=== PATIENT | male | born 1945 ===

== ENCOUNTER 2016-10-21 07:03 | Emergency (ER) | payer OTHER, MEDICAID ==
[2016-10-21 07:28] VITALS: BP 120/72; PULSE 71; RESP 16; TEMP 98.1; O2SAT 98
[2016-10-21] MEDS ORDERED: Lidocaine 5% Patch TD STA (07:28)
--- NOTE | 2016-10-21 07:50 | ED PDOC ---
HPI: Back Time Seen by Provider: 10/21/16 07:15 Chief Complaint (Nursing): Back Pain Chief Complaint (Provider): Back Pain History Per: Patient History/Exam Limitations: no limitations Onset/Duration Of Symptoms: Days (x1 week) Current Symptoms Are (Timing): Still Present Additional Complaint(s): Pt is a 71 y/o male who presents to the emergency department with diffuse back pain that radiates to the legs bilaterally and left knee x1 week. Patient state he performed heavy lifting about 2 weeks ago. Reports pain is a 10 from a 1-10 scale and worsens with movement. Patient has tried ibuprofen for his pain. Pt was diagnosed with 2 herniated discs and lumbar problems 4 yrs ago, and had epidural injections at that time to help the symptoms. PMD: Dr. Jonas Cristina MD Past Medical History Reviewed: Historical Data, Nursing Documentation, Vital Signs Vital Signs: Last Vital Signs Temp 98.1 F 10/21/16 07:15 Pulse 71 10/21/16 07:15 Resp 16 10/21/16 07:15 BP 120/72 10/21/16 07:15 Pulse Ox 98 10/21/16 07:15 - Medical History PMH: Diabetes, HTN, Hypercholesterolemia Other PMH: skin cancer, herniated discs - Surgical History Other surgeries: Right Lung Polyp surgery (2008) - Family History Family History: States: Other (Stomach cancer) - Social History Current smoker - smoking cessation education provided: No Alcohol: None Drugs: Denies - Home Medications Home Medications: Ambulatory Orders Medication Instructions Recorded Alendronate [Fosamax] 70 mg PO QWK 10/21/16 Empagliflozin [Jardiance] 10 mg PO DAILY 10/21/16 Escitalopram [Lexapro] 10 mg PO DAILY 10/21/16 Fenofibrate [Tricor] 67 mg PO DAILY 10/21/16 Ibuprofen [Motrin Tab] 400 mg PO BID PRN 10/21/16 Meclizine [Meclizine*] 12.5 mg PO DAILY 10/21/16 MetFORMIN [glucoPHAGE] 1,000 mg PO BID 10/21/16 Naproxen [Naprosyn] 500 mg PO Q12H #20 tab 10/21/16 Pravastatin Sodium [Pravastatin 40 mg PO DAILY 10/21/16 Sodium] Ranitidine HCl [Zantac] 300 mg PO DAILY 10/21/16 Tiotropium [place] [Spiriva 2.5 mcg INH TID 10/21/16 Respimat] Valsartan [Diovan] 40 mg PO DAILY 10/21/16 traMADol [Ultram] 50 mg PO Q8 #10 tab 10/21/16 - Allergies Allergies/Adverse Reactions: Allergies Allergy/AdvReac Type Severity Reaction Status Date / Time No Known Allergies Allergy Verified 10/09/15 11:13 Review of Systems ROS Statement: Except As Marked, All Systems Reviewed And Found Negative Musculoskeletal: Positive for: Back Pain (Diffusely), Leg Pain (B/L), Other ( Left knee) Physical Exam - Reviewed Nursing Documentation Reviewed: Yes Vital Signs Reviewed: Yes - Physical Exam Appears: Positive for: Non-toxic, No Acute Distress Head Exam: Positive for: ATRAUMATIC, NORMOCEPHALIC Skin: Positive for: Normal Color, Warm, Dry Eye Exam: Positive for: Normal appearance ENT: Positive for: Normal ENT Inspection Neck: Positive for: Normal, Supple Cardiovascular/Chest: Positive for: Regular Rate, Rhythm. Negative for: Murmur Respiratory: Positive for: Normal Breath Sounds. Negative for: Accessory Muscle Use, Respiratory Distress Gastrointestinal/Abdominal: Positive for: Normal Exam, Bowel Sounds, Soft. Negative for: Tenderness Back: Positive for: Other (Tenderness of the paralumbar region; pain when flexes at lower back). Negative for: Normal Inspection Extremity: Positive for: Normal ROM Neurologic/Psych: Positive for: Alert, Oriented. Negative for: Motor/Sensory Deficits - ECG O2 Sat by Pulse Oximetry: 98 (RA) Pulse Ox Interpretation: Normal Medical Decision Making Medical Decision Making: Time: 7:15 Initial impression: Back pain, herniated disc exacerbation Initial plan: --Lidocaine 5% TD --Motrin 600 mg PO --Tylenol 975 mg PO --Valium 5 mg PO --LS Spine AP/LAT (RAD) Stat --Revaluation Scribe Attestation: Documented by Aspen Whitley, acting as a scribe for Robbie Mcgee MD. Provider Scribe Attestation: All medical record entries made by the Scribe were at my direction and personally dictated by me. I have reviewed the chart and agree that the record accurately reflects my personal performance of the history, physical exam, medical decision making, and the department course for this patient. I have also personally directed, reviewed, and agree with the discharge instructions and disposition. Disposition - Clinical Impression Clinical Impression: Back pain - Patient ED Disposition Is Patient to be Admitted: No - Disposition Referrals: [facility] [Outside] Disposition: Routine/Home Disposition Time: 10:00 Condition: IMPROVED Prescriptions: Naproxen [Naprosyn] 500 mg PO Q12H #20 tab traMADol [Ultram] 50 mg PO Q8 #10 tab Instructions: Back Pain (ED) Physician Patient Turnover - . Patient Signed Over To: Samuel Maier Handoff Comments: Pt endorsed to Dr. Maier at 10:00 AM. Handoff is to reassess the patient. If his pain is improved, then d/c patient home.
[2016-10-21] MEDS ORDERED: Acetaminophen-Codeine 300/30 mg Tab PO STA (09:55)
--- NOTE | 2016-10-21 10:05 | ED PDOC ---
- ECG O2 Sat by Pulse Oximetry: 98 (RA) Pulse Ox Interpretation: Normal Medical Decision Making Medical Decision Making: Time: 9:55 --Tylenol/Codeine 300 mg/30 mg. --Patient is pending x-ray, reassessment, and disposition. Disposition Counseled Patient/Family Regarding: Studies Performed, Diagnosis, Need For Followup, Rx Given - Clinical Impression Clinical Impression: Back pain - POA Present On Arrival: None - Disposition Referrals: [facility] [Outside] Disposition: Routine/Home Disposition Time: 10:11 Condition: FAIR Prescriptions: Naproxen [Naprosyn] 500 mg PO Q12H #20 tab traMADol [Ultram] 50 mg PO Q8 #10 tab Instructions: Back Pain (ED)
--- NOTE | 2016-10-21 13:05 | RAD ---
PROCEDURE: Radiographs of the Lumbar Spine. HISTORY: Low back pain COMPARISON: No prior. FINDINGS: BONES: There is straightening of the lumbar spine with loss of normal lumbar lordosis. Vertebral alignment is normal. Vertebral height is maintained. Bone mineralization is normal. There is no acute fracture. DISC SPACES: There is multilevel degenerative disc disease with reduced disc heights, anterior osteophytes and multilevel facet arthropathy, worse at L5-S1. OTHER FINDINGS: There are no pathologic soft tissue calcifications. Both sacroiliac joints are normal. IMPRESSION: No acute fracture. Mild multilevel degenerative disc disease, worse at L5-S1.
== END 2016-10-21 10:46 | disposition home or self-care (01) ==
LOC: H.ER 07:03
DX: M54.9 Dorsalgia, unspecified (principal); E11.9 Type 2 diabetes mellitus without complications; E78.00 Pure hypercholesterolemia, unspecified; I10 Essential (primary) hypertension; Z79.84 Long term (current) use of oral hypoglycemic drugs

== ENCOUNTER 2018-04-20 19:42 | Emergency (ER) | payer MEDICARE ==
[2018-04-20 19:42] VITALS: BMI 25.6
[2018-04-20 21:35] LABS: BASO % 0.6 % (0.0-2.0); EOS # 0.2 K/uL (0.0-0.7); EOS % 3.6 % (0.0-4.0); HEMOGLOBIN 14.1 g/dL (12.0-18.0); LYMPH # 2.8 K/uL (1.0-4.3); LYMPH % 51.2 % (20.0-40.0); MEAN CORPUSCULAR HEMOGLOBIN 28.9 pg (27.0-31.0); MEAN CORPUSCULAR HGB CONC 33.2 g/dL (33.0-37.0); MEAN PLATELET VOLUME 7.9 fl (7.2-11.7); MONO # 0.4 K/uL (0.0-0.8); MONO % 7.6 % (0.0-10.0); RBC 4.88 Mil/uL (4.40-5.90); RED CELL DISTRIBUTION WIDTH 13.9 % (11.5-14.5); WHITE BLOOD COUNT 5.4 K/uL (4.8-10.8)
[2018-04-20 21:42] LABS: BLOOD UREA NITROGEN 21 mg/dl (9-20); CALCIUM 9.7 mg/dL (8.4-10.2); GFR NON-AFRICAN AMERICAN > 60
--- NOTE | 2018-04-20 21:53 | ED PDOC ---
HPI: Headache Chief Complaint (Provider): Headache History Per: Patient, Administrative Support Coordinator ([id number]) History/Exam Limitations: no limitations Onset/Duration Of Symptoms: Days (x5) Current Symptoms Are (Timing): Still Present Pain Scale Rating Of: 9 Additional Complaint(s): 73 year old male presents to the ED for evaluation of a posterior headache that started on monday associated with neck and bilateral shoulder pain which was described as stiffness. Patient states headache is 9 out of 10 and described as strong pain and unrelieved by ibuprofen. Last dose of ibuprofen was at 14:00 today. He states he applied hot compresses to neck with no relief and denies associated symptoms. Denies dizziness, nausea, vomiting, abdominal pain, chest pain, shortness of breath, weakness, numbness, or changes in vision. PMD: Dr. Cristina <Radha Sapp - Last Filed: 04/20/18 23:16> <Cele Medellin - Last Filed: 04/21/18 22:32> Time Seen by Provider: 04/20/18 20:36 Chief Complaint (Nursing): Headache Supervising Attending Note - Attestation: I have personally seen and examined this patient.: No I have reviewed all pertinent clinical information: Yes <Cele Medellin - Last Filed: 04/21/18 22:32> Past Medical History Reviewed: Historical Data, Nursing Documentation, Vital Signs Vital Signs: Last Vital Signs Temp 98.4 F 04/20/18 19:56 Pulse 71 04/20/18 19:56 Resp 18 04/20/18 19:56 BP 131/65 04/20/18 19:56 Pulse Ox 97 04/20/18 19:56 - Medical History PMH: Diabetes, HTN, Hypercholesterolemia - Surgical History Other surgeries: Procedure to lungs - Family History Family History: States: Unknown Family Hx - Social History Current smoker - smoking cessation education provided: No Alcohol: None Drugs: Denies - Immunization History Hx Influenza Vaccination: Yes Hx Pneumococcal Vaccination: Yes <Radha Sapp - Last Filed: 04/20/18 23:16> Vital Signs: Last Vital Signs Temp 97.5 F L 04/20/18 23:26 Pulse 66 04/20/18 23:26 Resp 16 04/20/18 23:26 BP 118/64 04/20/18 23:26 Pulse Ox 95 04/20/18 23:26 <Cele Medellin - Last Filed: 04/21/18 22:32> - Home Medications Home Medications: Ambulatory Orders Medication Instructions Recorded Empagliflozin [Jardiance] 10 mg PO DAILY 10/21/16 Pravastatin Sodium 40 mg PO DAILY 10/21/16 RX: Alendronate [Fosamax] 70 mg PO QWK 10/21/16 RX: Escitalopram [Lexapro] 10 mg PO DAILY 10/21/16 RX: Fenofibrate [Tricor] 67 mg PO DAILY 10/21/16 RX: Ibuprofen [Motrin Tab] 400 mg PO BID PRN 10/21/16 RX: Meclizine [Meclizine*] 12.5 mg PO DAILY 10/21/16 RX: MetFORMIN [glucoPHAGE] 1,000 mg PO BID 10/21/16 RX: Ranitidine HCl [Zantac] 300 mg PO DAILY 10/21/16 RX: Valsartan [Diovan] 40 mg PO DAILY 10/21/16 Tiotropium [place] [Spiriva 2.5 mcg INH TID 10/21/16 Respimat] Acetaminophen [Acetaminophen 8 650 mg PO Q8 PRN #21 tablet.er 04/20/18 Hour] Meloxicam [Mobic] 15 mg PO DAILY PRN #10 tab 04/20/18 - Allergies Allergies/Adverse Reactions: Allergies Allergy/AdvReac Type Severity Reaction Status Date / Time No Known Allergies Allergy Verified 04/20/18 19:56 Review of Systems ROS Statement: Except As Marked, All Systems Reviewed And Found Negative Eyes: Negative for: Vision Change Cardiovascular: Negative for: Chest Pain Respiratory: Negative for: Shortness of Breath Gastrointestinal: Negative for: Nausea, Vomiting, Abdominal Pain Musculoskeletal: Positive for: Neck Pain, Shoulder Pain Neurological: Positive for: Headache. Negative for: Weakness, Numbness, Dizziness <Radha Sapp - Last Filed: 04/20/18 23:16> Physical Exam - Reviewed Nursing Documentation Reviewed: Yes Vital Signs Reviewed: Yes - Physical Exam Comments: GENERAL APPEARANCE: Patient is awake, alert, oriented x 3, in no acute distress. Resting comfortably. SKIN: Warm, dry; (-) cyanosis; (-) rash. HEAD: (-) scalp swelling or tenderness, (-) temporal artery tenderness. EYES: (-) conjunctival pallor, (-) scleral icterus. ENMT: (-) sinus tenderness; mucous membranes are moist. NECK: (-) tenderness, (-) stiffness, (-) meningismus, (-) lymphadenopathy. CHEST AND RESPIRATORY: (-) rales, (-) rhonchi, (-) wheezes; breath sounds equal bilaterally. HEART AND CARDIOVASCULAR: (-) irregularity; (-) murmur, (-) gallop. ABDOMEN AND GI: Soft; (-) tenderness. BACK: (+) Tenderness of bilateral paracervical trapezius; EXTREMITIES: Full ROM of bilateral upper extremity (-) deformity. NEURO AND PSYCH: Mental status as above. 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 Strength and DTRs symmetric. Babinski normal bilaterally. <Radha Sapp - Last Filed: 04/20/18 23:16> - Laboratory Results Result Diagrams: 04/20/18 21:28 04/20/18 21:28 - ECG O2 Sat by Pulse Oximetry: 97 (RA) Pulse Ox Interpretation: Normal <Radha Sapp - Last Filed: 04/20/18 23:16> - Laboratory Results Result Diagrams: 04/20/18 21:28 04/20/18 21:28 <Cele Medellin - Last Filed: 04/21/18 22:32> Medical Decision Making Medical Decision Making: Initial Impression: Probably tension headache, muscle spasm on neck and shoulder Initial Plan: 2149 CBC and BMP grossly unremarkable. Pending CT results. [address] without contrast: No acute intracranial abnormality Electronically signed on Apr 20, 2018 10:10:13 PM EDT by Winsome Nelson M.D. ([facility]Arad) Toradol 15mg IVP ordered for additional relief. Accucheck: 86 EKG: NSR @ 66bpm, (-) ST elevation (-) ectopy. QTc 436. 2300 On re-evaluation, patient reports improvement of symptoms. On exam, patient remains AAOx3, in no acute distress. Lungs CTA, cardiac RRR, abdomen soft, nontender, repeat neuro exam shows no focal findings. Vitals stable. Lab/Diagnostic results d/w with the patient in great detail. Diagnosis of tension headache, acute neck and shoulder pain d/w patient. Based on history, exam, and diagnostic results, plan will be for outpatient follow up with PMD. Patient instructed to follow up with PMD / referral provided / the clinic in 1-2 days without fail. Advised to take medication as prescribed. Return to the emergency room at any time for any new or worsening symptoms. Patient states he agrees with and understandings discharge instructions. States that he agrees with the plan and disposition. Verbalized and repeated discharge instructions and plan. I have given the patient opportunity to ask any additional questions. Scribe Attestation: Documented by Delvin Duong acting as a scribe for Radha FISHER. Provider Scribe Attestation: All medical record entries made by the Scribe were at my direction and personally dictated by me. I have reviewed the chart and agree that the record accurately reflects my personal performance of the history, physical exam, medical decision making, and the department course for this patient. I have also personally directed, reviewed, and agree with the discharge instructions and disposition. <Radha Sapp - Last Filed: 04/20/18 23:16> Disposition - Patient ED Disposition Is Patient to be Admitted: No Counseled Patient/Family Regarding: Studies Performed, Diagnosis, Need For Followup, Rx Given - Disposition Disposition: Routine/Home Disposition Time: 23:05 - POA Present On Arrival: None <Radha Sapp - Last Filed: 04/20/18 23:16> <Cele Medellin - Last Filed: 04/21/18 22:32> - Clinical Impression Clinical Impression: Tension headache, Muscle spasms of neck, Muscle spasm of shoulder region - Disposition Referrals: Jonas Cristina MD [Family Provider] - Condition: STABLE Additional Instructions: La atencin mdica de emergencia que recibi hoy se dirigi hacia jayla sntomas agudos. Si le recetaron un medicamento, llnelo en la farmacia y tmelo segn las indicaciones. Los sntomas pueden tardar varios zepeda en resolverse. Regrese al departamento de emergencias si jayla sntomas empeoran, no mejoran o si tiene otros problemas. Comunquese con hermosillo mdico / proveedor / clnica referida en 2 zepeda para alvino evaluacin adicional. El tratamiento en el departamento de emergencias no puede reemplazar la atencin mdica en curso por parte de un mdico de cabecera fuera del departamento de emergencias. Prescriptions: Acetaminophen [Acetaminophen 8 Hour] 650 mg PO Q8 PRN #21 tablet.er PRN Reason: Headache Meloxicam [Mobic] 15 mg PO DAILY PRN #10 tab PRN Reason: Headache Instructions: Tension Headache, Headache, Adult, Muscle Spasms (DC), Muscle and Bone Pain (DC) Forms: [employer] (Albanian) Print Language: [id number] Results - Lab Results Lab Results: 04/20/18 04/20/18 04/20/18 21:45 21:28 21:28 WBC 5.4 RBC 4.88 Hgb 14.1 Hct 42.4 MCV 87.0 MCH 28.9 MCHC 33.2 RDW 13.9 Plt Count 217 MPV 7.9 Neut % (Auto) 37.0 L Lymph % (Auto) 51.2 H [place] % (Auto) 7.6 Eos % (Auto) 3.6 Baso % (Auto) 0.6 Neut # (Auto) 2.0 Lymph # (Auto) 2.8 [place] # (Auto) 0.4 Eos # (Auto) 0.2 Baso # (Auto) 0.0 Sodium 140 Potassium 4.0 Chloride 102 Carbon Dioxide 30 Anion Gap 12 BUN 21 H Creatinine 0.8 Est GFR ( Amer) > 60 Est GFR (Non-Af Amer) > 60 POC Glucose (mg/dL) 86 Random Glucose 91 Calcium 9.7 <Radha Sapp - Last Filed: 04/20/18 23:16> - Lab Results Lab Results: 04/20/18 04/20/18 04/20/18 21:45 21:28 21:28 WBC 5.4 RBC 4.88 Hgb 14.1 Hct 42.4 MCV 87.0 MCH 28.9 MCHC 33.2 RDW 13.9 Plt Count 217 MPV 7.9 Neut % (Auto) 37.0 L Lymph % (Auto) 51.2 H [place] % (Auto) 7.6 Eos % (Auto) 3.6 Baso % (Auto) 0.6 Neut # (Auto) 2.0 Lymph # (Auto) 2.8 [place] # (Auto) 0.4 Eos # (Auto) 0.2 Baso # (Auto) 0.0 Sodium 140 Potassium 4.0 Chloride 102 Carbon Dioxide 30 Anion Gap 12 BUN 21 H Creatinine 0.8 Est GFR ( Amer) > 60 Est GFR (Non-Af Amer) > 60 POC Glucose (mg/dL) 86 Random Glucose 91 Calcium 9.7 <Cele Medellin - Last Filed: 04/21/18 22:32>
[2018-04-20 23:27] VITALS: BP 118/64; PULSE 66; RESP 16; TEMP 97.5; O2SAT 95
--- NOTE | 2018-04-21 10:25 | CARD ---
APPROVED REPORT Date of service: 04/20/2018 EKG Measurement Heart [id number] <Conclusion> Normal sinus rhythm Normal ECG
--- NOTE | 2018-04-21 10:59 | CT ---
Date of service: 04/20/2018 PROCEDURE: CT HEAD WITHOUT CONTRAST. HISTORY: posterior headache COMPARISON: Comparison is made to the previous study dated 07/17/2012 TECHNIQUE: Axial computed tomography images were obtained through the head/brain without intravenous contrast. Radiation dose: Total exam DLP = 808.23 mGy-cm. This CT exam was performed using one or more of the following dose reduction techniques: Automated exposure control, adjustment of the mA and/or kV according to patient size, and/or use of iterative reconstruction technique. FINDINGS: HEMORRHAGE: No intracranial hemorrhage. BRAIN: No mass effect or edema. Focal encephalomalacia at the peripheral right cerebellar hemisphere is again noted may represent old infarct. No atrophy or chronic microvascular ischemic changes. VENTRICLES: Unremarkable. No hydrocephalus. CALVARIUM: Unremarkable. PARANASAL SINUSES: Unremarkable as visualized. No significant inflammatory changes. MASTOID AIR CELLS: Unremarkable as visualized. No inflammatory changes. OTHER FINDINGS: None. IMPRESSION: No evidence of acute intracranial hemorrhage mass effect or midline shift. No significant interval changes noted since the prior exam. The preliminary findings for this examination were reported by [facility] at {10:13 p.m.} on {04/20/2018} there is discordance of this report with the preliminary findings.
== END 2018-04-20 23:26 | disposition home or self-care (01) ==
LOC: H.ER 19:42
DX: G44.209 Tension-type headache, unspecified, not intractable (principal); M62.838 Other muscle spasm; E11.9 Type 2 diabetes mellitus without complications; E78.00 Pure hypercholesterolemia, unspecified; I10 Essential (primary) hypertension; Z79.84 Long term (current) use of oral hypoglycemic drugs
CPT/HCPCS: 70450; 80048; 82948; 85025; 93005; 96374; 96375; 99285; J1885; J2765

== ENCOUNTER 2018-07-08 09:30 | Emergency (ER) | payer MEDICARE ==
[2018-07-08 09:48] VITALS: RESP 16; BMI 28.7
--- NOTE | 2018-07-08 10:18 | ED PDOC ---
History of Present Illness History of Present Illness: 73 y/o male with history of diabetes presents to ER for evaluation of non productive cough associated with bodyaches, chills and sore throat onset 10 days. Patient denies shortness of breath. Unknown fever PMD: non provided HPI: Influenza Time Seen by Provider: 07/08/18 09:58 Chief Complaint: Cough, Cold, Congestion Chief Complaint (Provider): Cough, Cold, Congestion History Per: Patient Exam Limitations: no limitations Onset/Duration Of Symptoms: Days (x10) Symptoms include: bodyaches, sore throat, cough (non productive). denies: difficulty breathing Past Medical History Reviewed: Historical Data, Nursing Documentation, Vital Signs Vital Signs: Last Vital Signs Temp 98.6 F 07/08/18 09:47 Pulse 92 H 07/08/18 09:47 Resp 16 07/08/18 09:47 BP 110/63 07/08/18 09:47 Pulse Ox 95 07/08/18 09:47 PHILIP Report Viewed: Yes - Medical History PMH: Diabetes, HTN, Hypercholesterolemia - Surgical History Surgical History: No Surg Hx - Family History Family History: States: Unknown Family Hx - Social History Current smoker - smoking cessation education provided: No Alcohol: Social Drugs: Denies - Immunization History Hx Influenza Vaccination: Yes Hx Pneumococcal Vaccination: Yes - Home Medications Home Medications: Ambulatory Orders Medication Instructions Recorded Alendronate [Fosamax] 70 mg PO QWK 10/21/16 Empagliflozin [Jardiance] 10 mg PO DAILY 10/21/16 Escitalopram [Lexapro] 10 mg PO DAILY 10/21/16 Fenofibrate [Tricor] 67 mg PO DAILY 10/21/16 Ibuprofen [Motrin Tab] 400 mg PO BID PRN 10/21/16 Meclizine [Meclizine*] 12.5 mg PO DAILY 10/21/16 MetFORMIN [glucoPHAGE] 1,000 mg PO BID 10/21/16 Pravastatin Sodium 40 mg PO DAILY 10/21/16 Ranitidine HCl [Zantac] 300 mg PO DAILY 10/21/16 Tiotropium [place] [Spiriva 2.5 mcg INH TID 10/21/16 Respimat] Valsartan [Diovan] 40 mg PO DAILY 10/21/16 Acetaminophen [Acetaminophen 8 650 mg PO Q8 PRN #21 tablet.er 04/20/18 Hour] Meloxicam [Mobic] 15 mg PO DAILY PRN #10 tab 04/20/18 Azithromycin [Zithromax] 250 mg PO DAILY #6 tab 07/08/18 Promethazine/Codeine 5 ml PO Q8 #60 ml 07/08/18 [Codeine/Promethazine 10 MG/5 Ml-6.25 MG/5 Ml] - Allergies Allergies/Adverse Reactions: Allergies Allergy/AdvReac Type Severity Reaction Status Date / Time No Known Allergies Allergy Verified 04/20/18 19:56 Review of Systems ROS Statement: Except As Marked, All Systems Reviewed And Found Negative Constitutional: Positive for: Chills ENT: Positive for: Throat Pain Respiratory: Positive for: Cough (non productive). Negative for: Shortness of Breath Physical Exam - Reviewed Nursing Documentation Reviewed: Yes Vital Signs Reviewed: Yes - Physical Exam Appears: Positive for: Non-toxic, No Acute Distress Head Exam: Positive for: ATRAUMATIC, NORMOCEPHALIC Skin: Positive for: Normal Color, Warm, Dry Eye Exam: Positive for: Normal appearance, EOMI, PERRL ENT: Positive for: Normal ENT Inspection Neck: Positive for: Normal, Painless ROM, Supple Cardiovascular/Chest: Positive for: Regular Rate, Rhythm. Negative for: Murmur Respiratory: Positive for: Rhonchi. Negative for: Wheezing, Respiratory Distress Gastrointestinal/Abdominal: Positive for: Normal Exam, Soft. Negative for: T enderness Back: Positive for: Normal Inspection. Negative for: L CVA Tenderness, R CVA Tenderness Extremity: Positive for: Normal ROM. Negative for: Tenderness, Swelling Neurologic/Psych: Positive for: Alert, Oriented (x3) Medical Decision Making Medical Decision Making: Time: 1014 A/P: symptoms of 10 days, treatment not effective for flu --Will obtain CXR and treat based on results Scribe Attestation: Documented by Joan Eric, acting as a scribe for Samuel Maier MD. Provider Scribe Attestation: All medical record entries made by the Scribe were at my direction and personally dictated by me. I have reviewed the chart and agree that the record accurately reflects my personal performance of the history, physical exam, medical decision making, and the department course for this patient. I have also personally directed, reviewed, and agree with the discharge instructions and disposition. - ECG O2 Sat by Pulse Oximetry: 95 (RA) Pulse Ox Interpretation: Normal Disposition - Clinical Impression Clinical Impression: Bronchitis - Patient ED Disposition Is Patient to be Admitted: No Counseled Patient/Family Regarding: Studies Performed, Diagnosis, Need For Followup, Rx Given - Disposition Referrals: Jonas Cristina MD [Medical Doctor] - Disposition: Routine/Home Disposition Time: 11:44 Condition: FAIR Prescriptions: Azithromycin [Zithromax] 250 mg PO DAILY #6 tab Promethazine/Codeine [Codeine/Promethazine 10 MG/5 Ml-6.25 MG/5 Ml] 5 ml PO Q8 #60 ml Instructions: Acute Bronchitis Forms: [facility] (Spanish) Print Language: ICELANDIC
[2018-07-08 12:00] VITALS: BP 114/66; PULSE 87; TEMP 98.3; O2SAT 100
--- NOTE | 2018-07-08 14:15 | RAD ---
Date of service: 07/08/2018 HISTORY: cough COMPARISON: Comparison chest dated 07/17/2012. Palate TECHNIQUE: Chest PA and lateral FINDINGS: LUNGS: Small calcified granuloma again seen left lateral upper lung field.. There also appears to be some minimal bibasilar atelectasis. Persistent slight elevation right hemidiaphragm possibly due to eventration. PLEURA: No significant pleural effusion identified. No pneumothorax apparent. CARDIOVASCULAR: No aortic atherosclerotic calcification present. Normal cardiac size. No pulmonary vascular congestion. OSSEOUS STRUCTURES: Old possibly unfused fracture deformity right posterior 5th rib unchanged.. Mild multilevel degenerative spondylosis of the thoracic spine.. VISUALIZED UPPER ABDOMEN: Normal. OTHER FINDINGS: None. IMPRESSION: Redemonstrated is a small calcified granuloma left lateral upper lung field.. Persistent elevation right hemidiaphragm possibly due to eventration.
== END 2018-07-08 11:50 | disposition home or self-care (01) ==
LOC: H.ER 09:30
DX: J40 Bronchitis, not specified as acute or chronic (principal)

== ENCOUNTER 2018-08-10 12:11 | Emergency (ER) | payer MEDICARE ==
[2018-08-10 12:12] VITALS: BMI 28.7
--- NOTE | 2018-08-10 12:53 | ED PDOC ---
HPI: Influenza Time Seen by Provider: 08/10/18 12:30 Chief Complaint: Cough, Cold, Congestion Chief Complaint (Provider): Influenza like Symptoms History Per: Patient Exam Limitations: no limitations Have you had recent travel within the past 21 days to any of: No Onset/Duration Of Symptoms: Days (four) Symptoms include: headache, bodyaches, nasal congestion. denies: fever Risk factors for flu complications: Yes: adult > 65 years (Pt presents to the ED complaining of chest congestion, cough, nasal congestion and an overall feeling of ill. Pt denies fever, NVD but does admit to diabetes), endocrine disorders Past Medical History Reviewed: Historical Data, Nursing Documentation, Vital Signs Vital Signs: Last Vital Signs Temp 97.9 F 08/10/18 12:17 Pulse 84 08/10/18 12:17 Resp 17 08/10/18 12:17 BP 132/78 08/10/18 12:17 Pulse Ox 98 08/10/18 12:17 - Medical History PMH: Diabetes, HTN, Hypercholesterolemia Denies: Chronic Kidney Disease - Family History Family History: States: Unknown Family Hx - Immunization History Hx Tetanus Toxoid Vaccination: No Hx Influenza Vaccination: No Hx Pneumococcal Vaccination: Yes - Home Medications Home Medications: Ambulatory Orders Medication Instructions Recorded Alendronate [Fosamax] 70 mg PO QWK 10/21/16 Empagliflozin [Jardiance] 10 mg PO DAILY 10/21/16 Escitalopram [Lexapro] 10 mg PO DAILY 10/21/16 Fenofibrate [Tricor] 67 mg PO DAILY 10/21/16 Ibuprofen [Motrin Tab] 400 mg PO BID PRN 10/21/16 Meclizine [Meclizine*] 12.5 mg PO DAILY 10/21/16 MetFORMIN [glucoPHAGE] 1,000 mg PO BID 10/21/16 Pravastatin Sodium 40 mg PO DAILY 10/21/16 Ranitidine HCl [Zantac] 300 mg PO DAILY 10/21/16 Tiotropium [place] [Spiriva 2.5 mcg INH TID 10/21/16 Respimat] Valsartan [Diovan] 40 mg PO DAILY 10/21/16 Acetaminophen [Acetaminophen 8 650 mg PO Q8 PRN #21 tablet.er 04/20/18 Hour] Meloxicam [Mobic] 15 mg PO DAILY PRN #10 tab 04/20/18 Azithromycin [Zithromax] 250 mg PO DAILY #6 tab 07/08/18 Promethazine/Codeine 5 ml PO Q8 #60 ml 07/08/18 [Codeine/Promethazine 10 MG/5 Ml-6.25 MG/5 Ml] Oseltamivir Phosphate [Tamiflu] 75 mg PO BID #10 capsule 08/10/18 - Allergies Allergies/Adverse Reactions: Allergies Allergy/AdvReac Type Severity Reaction Status Date / Time No Known Allergies Allergy Verified 08/10/18 12:27 Review of Systems ROS Statement: Except As Marked, All Systems Reviewed And Found Negative Constitutional: Positive for: Weakness ENT: Positive for: Nose Discharge, Nose Congestion Respiratory: Positive for: Cough, Wheezing Neurological: Positive for: Headache Physical Exam - Reviewed Nursing Documentation Reviewed: Yes Vital Signs Reviewed: Yes - Physical Exam Appears: Positive for: Well, Non-toxic, No Acute Distress. Negative for: Uncomfortable Head Exam: Positive for: ATRAUMATIC, NORMAL INSPECTION Skin: Positive for: Normal Color, Warm, Dry. Negative for: Diaphoresis, Pallor, Rash Eye Exam: Positive for: Normal appearance ENT: Positive for: Normal ENT Inspection (ENMT: TMs: (-) erythema. Pharynx: No tonsillar erythema or pharyngeal erythema; (-) exudate. (-) deviation of uvula. Mucous membranes _ moist. Airway widely patent: (-) stridor, (-) hoarseness, (-) drooling (-) tongue elevation (-) jaw or neck swelling (-) pain upon palpation of the cricoid.). Negative for: Pharyngeal Erythema Cardiovascular/Chest: Positive for: Regular Rate, Rhythm, Chest Non Tender. Negative for: Edema, Bradycardia, Tachycardia Respiratory: Positive for: Normal Breath Sounds. Negative for: Decreased Breath Sounds, Accessory Muscle Use, Crackles, Rales, Rhonchi, Stridor, Wheezing, Respiratory Distress, Plerual Rub Pulses-Carotid (L): 2+ Pulses-Carotid (R): 2+ Medical Decision Making Medical Decision Making: R/O PNA R/O influenza Flu (+) Will treat with tamiflu; pt is afebrile on presentation and stable CXR IMPRESSION: No active disease. No significant interval change compared to the prior examination(s). - Laboratory Results Result Diagrams: 08/10/18 13:10 08/10/18 13:10 - ECG ECG: Positive for: Interpreted By Me, Viewed By Me ECG Rhythm: Positive for: Normal QRS, Normal ST Segment, Sinus Rhythm Rate: 83 O2 Sat by Pulse Oximetry: 98 Pulse Ox Interpretation: Normal Disposition - Clinical Impression Clinical Impression: Influenza - Patient ED Disposition Is Patient to be Admitted: No Doctor Will See Patient In The: Office Counseled Patient/Family Regarding: Studies Performed, Diagnosis, Need For Followup, Rx Given - Disposition Referrals: Jonas Cristina MD [Family Provider] - Disposition: Routine/Home Disposition Time: 14:38 Condition: STABLE Prescriptions: Oseltamivir Phosphate [Tamiflu] 75 mg PO BID #10 capsule Instructions: Flu, Adult (DC), Flu Forms: [facility] ([place]ian), [facility] ([place]ian) Print Language: M[place]ENEGRIN
[2018-08-10] MEDS ORDERED: Sodium Chloride 0.9% 1,000 ML IV ONE (13:00)
[2018-08-10 13:38] LABS: ALB/GLOB RATIO 1.4 (1.0-2.1); ALBUMIN 4.5 g/dL (3.5-5.0); ALT/SGPT 51 U/L (21-72); AST/SGOT 51 U/L (17-59); BLOOD UREA NITROGEN 19 mg/dl (9-20); CALCIUM 9.1 mg/dL (8.4-10.2); GFR NON-AFRICAN AMERICAN > 60
[2018-08-10 13:41] LABS: BASO % 0.7 % (0.0-2.0); EOS # 0.1 K/uL (0.0-0.7); EOS % 1.8 % (0.0-4.0); LYMPH # 1.8 K/uL (1.0-4.3); LYMPH % 32.3 % (20.0-40.0); MEAN CELL VOLUME 85.8 fl (80.0-94.0); MEAN CORPUSCULAR HEMOGLOBIN 28.6 pg (27.0-31.0); MEAN CORPUSCULAR HGB CONC 33.3 g/dL (33.0-37.0); MEAN PLATELET VOLUME 8.2 fl (7.2-11.7); MONO # 0.6 K/uL (0.0-0.8); MONO % 10.6 % (0.0-10.0); NEUT % 54.6 % (50.0-75.0); NRBC % 0.2 % (0.0-0.0); RBC 4.89 Mil/uL (4.40-5.90); RED CELL DISTRIBUTION WIDTH 13.3 % (11.5-14.5); WHITE BLOOD COUNT 5.5 K/uL (4.8-10.8)
[2018-08-10 13:44] LABS: B-TYPE NATRIURETIC PEPTIDE 56.5 pg/ml (0-900)
[2018-08-10 13:45] LABS: SQUAMOUS EPITHIAL < 1 /hpf (0-5); URINE BILIRUBIN NEGATIVE (NEGATIVE); URINE BLOOD NEGATIVE (NEGATIVE); URINE CLARITY SLIGHTY-CLOUDY (Clear); URINE COLOR AMBER (YELLOW); URINE GLUCOSE (UA) NEG (NEGATIVE); URINE HYALINE CAST >20 /hpf (0-2); URINE LEUKOCYTE ESTERASE NEG Leu/uL (Negative); URINE PROTEIN 100 mg/dL (NEGATIVE)
--- NOTE | 2018-08-10 13:54 | RAD ---
Date of service: 08/10/2018 HISTORY: r/o PNA COMPARISON: No prior. TECHNIQUE: Chest PA and lateral FINDINGS: LUNGS: No active pulmonary disease. Calcified granuloma right upper lobe. PLEURA: No significant pleural effusion identified. No pneumothorax apparent. CARDIOVASCULAR: No aortic atherosclerotic calcification present. Normal cardiac size. No pulmonary vascular congestion. OSSEOUS STRUCTURES: No significant abnormalities. Stable healed posterior right rib fractures VISUALIZED UPPER ABDOMEN: Normal. OTHER FINDINGS: None. IMPRESSION: No active disease. No significant interval change compared to the prior examination(s).
[2018-08-10 15:59] VITALS: BP 120/68; PULSE 95; RESP 18; TEMP 99; O2SAT 96
--- NOTE | 2018-08-10 18:34 | CARD ---
APPROVED REPORT Date of service: 08/10/2018 EKG Measurement Heart [id number] <Conclusion> Normal sinus rhythm Normal ECG
== END 2018-08-10 15:42 | disposition home or self-care (01) ==
LOC: H.ER 12:11
DX: J11.1 Influenza due to unidentified influenza virus with other respiratory manifestations (principal); E11.9 Type 2 diabetes mellitus without complications; I10 Essential (primary) hypertension; Z79.84 Long term (current) use of oral hypoglycemic drugs
CPT/HCPCS: 71046; 80053; 81003; 83880; 85025; 87070; 87430; 87804; 93005; 96360; 99283; J7030